=== PATIENT | female | born 1990 | race Caucasian/White ===

== ENCOUNTER 2019-04-14 16:33 | Emergency (ER) | payer OTHER, MEDICAID ==
[2019-04-14 16:41] VITALS: TEMP 99.4
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
[2019-04-14 18:03] VITALS: BP 110/70; PULSE 70; RESP 18
[2019-04-14 19:18] VITALS: O2SAT 100
== END 2019-04-14 18:03 | disposition home or self-care (01) ==
LOC: C.ER 16:33
DX: S16.1XXA Strain of muscle, fascia and tendon at neck level, initial encounter (principal); V43.62XA Car passenger injured in collision with other type car in traffic accident, initial encounter